=== PATIENT | female | born 1990 | race Caucasian/White ===

== ENCOUNTER 2024-01-04 08:45 | Day surgery (SDC) | payer OTHER ==
[~2024-01-04] VITALS: Ht 147.3 cm; Wt 52.0 kg
[~2024-01-04 08:45] MED LIST: ETON68IM SC; FLUT15.820
[2024-01-04] MEDS ORDERED: LR 1,000 ML IV SCH (08:55)
[2024-01-04] MEDS ORDERED: propofoL 200 MG/20 ML VIAL As Ordered ONE (09:30)
[2024-01-04] MEDS ORDERED: ROCURONIUM BROMIDE 50MG/5ML VIAL As Ordered ONE (09:30)
[2024-01-04] MEDS ORDERED: SUGAMMADEX SODIUM 500 MG/5 ML VIAL (BRIDION) As Ordered ONE (09:30)
[2024-01-04] MEDS ORDERED: ONDANSETRON 4MG 2ML VIAL As Ordered ONE (09:30)
[2024-01-04] MEDS ORDERED: LIDOCAINE 2% 100MG/5ML SDV (FOR ANES.) As Ordered ONE (09:30)
[2024-01-04] MEDS ORDERED: MIDAZOLAM INJ 2MG/2ML VIAL As Ordered ONE (09:34)
[2024-01-04] MEDS ORDERED: fentaNYL 100 MCG/2 ML INJECTION As Ordered ONE (09:34)
[2024-01-04] MEDS ORDERED: OXYMETAZOLINE 0.05% NASAL SPRAY (AFRIN) As Ordered ONE (10:26)
[2024-01-04] MEDS ORDERED: dexmedeTOMIDine (4MCG/ML)200MCG/50ML BTL (PRECEDEX) As Ordered ONE (10:59)
[2024-01-04] MEDS ORDERED: ACETAMINOPHEN 1000MG/100ML IV BAG As Ordered ONE (11:00)
[2024-01-04] MEDS ORDERED: fentaNYL 100 MCG/2 ML INJECTION IV PRN (11:25)
[2024-01-04] MEDS: oxyCODONE 5MG TAB PO PRN (11:56)
[2024-01-04] MEDS: ONDANSETRON 4MG 2ML VIAL IV PRN (11:56)
[2024-01-04 12:45] VITALS: BP 109/75; TEMP 97; O2SAT 100
== END 2024-01-04 12:46 | disposition home or self-care (01) ==
LOC: M SDC 08:45
PROVIDERS: ATTEND Otolaryngology
DX: J35.01 Chronic tonsillitis (principal); Z79.51 Long term (current) use of inhaled steroids
CPT/HCPCS: 42826; 81025; 88302; J0131; J1100; J2250; J2405; J3010

== ENCOUNTER → 2024-06-18 | Outpatient (CLI) | payer OTHER ==
[~2024-06-18] MED LIST changes: +ISOVUE-300 61% 100ML VIAL As Ordered ONE; +LIDOCAINE 1% MDV 20ML VIAL As Ordered ONE; +PROHANCE 279.3MG/ML 5ML VIAL As Ordered ONE
== END ==
LOC: M RAD 12:53
PROVIDERS: ATTEND Orthopaedic Surgery Hand Surgery
DX: M67.432 Ganglion, left wrist (principal); M25.532 Pain in left wrist
CPT/HCPCS: 25246; 73223; 77002; A9576; Q9967

== ENCOUNTER 2024-08-21 09:05 | Day surgery (SDC) | payer OTHER ==
[~2024-08-21] VITALS: Ht 147.3 cm; Wt 51.3 kg
[~2024-08-21 09:05] MED LIST changes: +ALMASUS; -ISOVUE-300 61% 100ML VIAL As Ordered ONE; -LIDOCAINE 1% MDV 20ML VIAL As Ordered ONE; -PROHANCE 279.3MG/ML 5ML VIAL As Ordered ONE
[2024-08-21] MEDS ORDERED: ROCURONIUM BROMIDE 50MG/5ML VIAL As Ordered ONE (09:07)
[2024-08-21] MEDS ORDERED: SUGAMMADEX SODIUM 500 MG/5 ML VIAL As Ordered ONE (09:07)
[2024-08-21] MEDS ORDERED: LIDOCAINE 2% 100 MG/5 ML SDV (FOR ANES.) As Ordered ONE (09:07)
[2024-08-21] MEDS ORDERED: ONDANSETRON 4MG 2ML VIAL As Ordered ONE (09:07)
[2024-08-21] MEDS ORDERED: dexAMETHasone 4 MG/ML 1 ML VIAL As Ordered ONE (09:07)
[2024-08-21] MEDS ORDERED: KETOROLAC 30 MG/ML 1 ML VIAL As Ordered ONE (09:07)
[2024-08-21] MEDS ORDERED: MIDAZOLAM INJ 2 MG/2 ML VIAL As Ordered ONE (09:08)
[2024-08-21] MEDS ORDERED: dexmedeTOMIDine (4 MCG/ML) 200 MCG/50 ML BTL As Ordered ONE (09:15)
[2024-08-21] MEDS ORDERED: LR 1,000 ML IV SCH (09:40)
[2024-08-21] MEDS: ACETAMINOPHEN 500 MG TAB PO ONE (09:57)
[2024-08-21] MEDS: SCOPOLAMINE 1MG TRANSDERMAL PATCH TOP ONE (09:59)
[2024-08-21] MEDS ORDERED: PHENYLephrine 500MCG 5ML (100MCG/ML) SYRINGE As Ordered ONE (11:07)
[2024-08-21] MEDS: ONDANSETRON 4MG 2ML VIAL IV PRN (12:25)
[2024-08-21 14:12] VITALS: BP 102/71; TEMP 98.7; O2SAT 98
[2024-08-26 14:49] LABS: HPV APTIMA Not Detected (Not Detected)
== END 2024-08-21 14:23 | disposition home or self-care (01) ==
LOC: M SDC 09:05
PROVIDERS: ATTEND General Practice
DX: Z30.2 Encounter for sterilization (principal)
CPT/HCPCS: 36415; 57410; 58661; 81025; 86850; 87624; 88302; G0123; J0665; J1100; J1885; J2250; J2371; J2405; J3010

== ENCOUNTER 2024-09-01 07:05 | Day surgery (SDC) | payer OTHER ==
[~2024-09-01] VITALS: Ht 147.3 cm; Wt 50.6 kg
[2024-09-01] MEDS ORDERED: MIDAZOLAM INJ 2 MG/2 ML VIAL As Ordered ONE (07:21)
[2024-09-01] MEDS ORDERED: LIDOCAINE 2% 100 MG/5 ML SDV (FOR ANES.) As Ordered ONE (08:23)
[2024-09-01] MEDS ORDERED: dexAMETHasone 4 MG/ML 1 ML VIAL As Ordered ONE (08:24)
[2024-09-01] MEDS ORDERED: ACETAMINOPHEN 1000MG/100ML IV BAG As Ordered ONE (08:24)
[2024-09-01] MEDS ORDERED: KETOROLAC 30 MG/ML 1 ML VIAL As Ordered ONE (08:24)
[2024-09-01] MEDS ORDERED: ONDANSETRON 4MG 2ML VIAL As Ordered ONE (08:24)
[2024-09-01] MEDS: LR 1,000 ML IV SCH (08:26)
[2024-09-01] MEDS: SCOPOLAMINE 1MG TRANSDERMAL PATCH TOP ONE (08:26)
[2024-09-01] MEDS: ceFAZolin SOD 2 GM IV ONCE IV ONE (08:35)
[2024-09-01] MEDS: POLYSPORIN TOPICAL OINTMENT 15GM As Ordered ONE (09:15)
[2024-09-01] MEDS: ONDANSETRON 4MG 2ML VIAL IV PRN (10:07)
[2024-09-01 10:30] VITALS: TEMP 97.4
[2024-09-01 11:05] VITALS: BP 114/74; O2SAT 98
== END 2024-09-01 11:15 | disposition home or self-care (01) ==
LOC: M SDC 07:05
PROVIDERS: ATTEND Orthopaedic Surgery Hand Surgery
DX: M67.432 Ganglion, left wrist (principal)
CPT/HCPCS: 25111; 88305; J0131; J0665; J0690; J1100; J1885; J2250; J2405